=== PATIENT | female | born 1975 | race Caucasian/White ===

== ENCOUNTER 2023-11-19 01:33 | Emergency (ER) | payer MEDICAID ==
[~2023-11-19] VITALS: Ht 157.5 cm; Wt 73.9 kg
[2023-11-19 01:39] VITALS: BP 165/99; PULSE 98; RESP 14; O2SAT 99
[2023-11-19 02:32] VITALS: TEMP 98.1
[2023-11-19] MEDS ORDERED: HYDR-5071 PO (02:39)
[2023-11-19] MEDS ORDERED: IBUP-2213 PO (02:40)
[2023-11-19] MEDS: MORPHINE SULFATE 4 MG/ML SYR IM ONE (02:45)
[2023-11-19 02:53] VITALS: BP 155/95; PULSE 98; RESP 16; O2SAT 97
== END 2023-11-19 02:53 | disposition home or self-care (01) ==
LOC: MED 01:33
DX: M54.50 Low back pain, unspecified (principal); E11.9 Type 2 diabetes mellitus without complications; I10 Essential (primary) hypertension; Z90.49 Acquired absence of other specified parts of digestive tract; Z90.710 Acquired absence of both cervix and uterus; Z98.890 Other specified postprocedural states; Z88.0 Allergy status to penicillin
CPT/HCPCS: 96372; 99283; J2270